=== PATIENT | female | born 1955 | race Caucasian/White ===

== ENCOUNTER 2021-06-04 13:41 | Inpatient (IN) ==
[2021-06-04] MEDS ORDERED: 0.9 % Sodium Chloride 1,000 ML IVC ONE (14:21)
[2021-06-04] MEDS ORDERED: Ketorolac 30 MG/ML VIAL IVP ONE (14:21)
[2021-06-04 14:39] LABS: Basophils % 0.1 %; Eosinophils # 0.1 K/mcL (0.0-0.6); Eosinophils % 1.5 %; Hematocrit 35.1 % (35.3-44.9); Hemoglobin 10.7 g/dL (11.5-15.4); Immature Granulocytes % 0.4 % (0-4); Lymphocytes % 12.5 %; Mean Corpuscular HGB Conc 30.5 g/dL (31.6-35.5); Mean Corpuscular Hemoglobin 28.9 pg (28.0-33.3); Mean Corpuscular Volume 94.9 fL (83.0-100.0); Mean Platelet Volume 10.5 fL (9.4-12.4); Monocytes # 0.5 K/mcL (0.0-1.3); Monocytes % 5.8 %; Neutrophils # 6.4 K/mcL (1.6-8.9); Platelet Count 188 K/mcL (140-400); Red Cell Distribution Width 14.3 % (11.5-14.5); Segmented Neutrophils % 79.7 %
[2021-06-04 14:46] LABS: Bilirubin,Urine Negative (Negative); Blood,Urine Trace-intact (Negative); Clarity,Urine Clear (Clear); Color,Urine Yellow (Yellow); Glucose,Urine (UA) Normal (Normal); Ketones,Urine Negative (Negative); Leukocyte Esterase,Urine Negative (Negative); Nitrite,Urine Negative (Negative); Protein,Urine 30 mg/dL (Neg-Trace); Specific Gravity,Urine 1.015 (1.010-1.025); Urobilinogen,Urine Normal (Normal)
[2021-06-04 14:52] LABS: RBC,Urine 0-3 per hpf (0-3); Squamous Epithelial Cell,Urine Few per hpf (None-Few)
[2021-06-04 14:56] LABS: Potassium 3.5 mEq/L (3.5-5.1)
[2021-06-04] MEDS ORDERED: Azithromycin 500 MG in 0.9 % Sodium Chloride 250 ML IVPB ONE (16:06)
[2021-06-04] MEDS ORDERED: Naloxone 0.4 MG/ML INJ IVP PRN (16:12)
[2021-06-04] MEDS ORDERED: Ondansetron 4 MG/2 ML VIAL IVP PRN (16:12)
[2021-06-04] MEDS ORDERED: Ipratropium/Albuterol Neb 3 ML IH PRN (16:14)
[2021-06-04] MEDS ORDERED: Dextrose 4 GM Chewable Tablets PO PRN ×2 (16:17)
[2021-06-04] MEDS ORDERED: *HR* Dextrose 50 % in Water (Syg) 50 ML SYRINGE IVP PRN (16:17)
[2021-06-04] MEDS ORDERED: D5% in Water 1,000 ML IVC PRN (16:17)
[2021-06-04] MEDS ORDERED: *HR* OxyCODONE Immed Rel 15 MG TABLET PO PRN (16:32)
[2021-06-04] MEDS ORDERED: tiZANidine 4 MG TABLET PO PRN (16:32)
[2021-06-04] MEDS: Insulin LISPRO 300 UNITS/3 ML VIAL SUBQ SCH (17:25)
[2021-06-04] MEDS: Gabapentin 400 MG CAPSULE PO SCH ×2 (17:45→20:22)
[2021-06-04] MEDS: Torsemide 20 MG TABLET PO SCH (17:46)
[2021-06-04] MEDS: rOPINIRole 1 MG TABLET PO SCH (20:22)
[2021-06-04] MEDS: Insulin DETEMIR 100 UNIT/ML X5UNITS SUBQ SCH (20:27)
[2021-06-04] MEDS: Budesonide/Formoterol 160/4.5 1 PUFF INH IH SCH (21:58)
[2021-06-05] MEDS: *HR* Heparin 5,000 UNIT/ML VIAL SQ SCH ×3 (00:01→17:24)
[2021-06-05 06:41] LABS: Calcium 8.3 mg/dL (8.6-10.3); Magnesium 1.9 mg/dL (1.6-2.6); Potassium 3.8 mEq/L (3.5-5.1)
[2021-06-05] MEDS: Gabapentin 400 MG CAPSULE PO SCH ×4 (07:50→21:30)
[2021-06-05] MEDS: Acetaminophen 325 MG TABLET PO PRN ×2 (07:50→17:23)
[2021-06-05] MEDS: Torsemide 20 MG TABLET PO SCH ×2 (07:50→17:24)
[2021-06-05] MEDS: Insulin LISPRO 300 UNITS/3 ML VIAL SUBQ SCH ×3 (07:51→17:58)
[2021-06-05] MEDS: Insulin DETEMIR 100 UNIT/ML X5UNITS SUBQ SCH ×2 (08:00→21:32)
[2021-06-05] MEDS: Budesonide/Formoterol 160/4.5 1 PUFF INH IH SCH ×2 (09:35→22:36)
[2021-06-05] MEDS ORDERED: Azithromycin 500 MG in 0.9 % Sodium Chloride 250 ML IVPB SCH (18:00)
[2021-06-05] MEDS ORDERED: cefTRIAXone 2,000 MG in 0.9 % Sodium Chloride Mini Bag 100 ML IVPB SCH (18:00)
[2021-06-05] MEDS: rOPINIRole 1 MG TABLET PO SCH (21:31)
[2021-06-06] MEDS: *HR* Heparin 5,000 UNIT/ML VIAL SQ SCH (00:05)
[2021-06-06 07:06] VITALS: TEMP 100.6
[2021-06-06] MEDS ORDERED: Furosemide 20 MG/2 ML VIAL IVP ONE (07:28)
[2021-06-06 07:41] LABS: Hematocrit 34.2 % (35.3-44.9); Hemoglobin 10.1 g/dL (11.5-15.4); Mean Corpuscular HGB Conc 29.5 g/dL (31.6-35.5); Mean Corpuscular Volume 98.3 fL (83.0-100.0); Mean Platelet Volume 11.5 fL (9.4-12.4); Platelet Count 188 K/mcL (140-400); Red Blood Count 3.48 M/mcL (3.82-4.97); Red Cell Distribution Width 14.6 % (11.5-14.5); White Blood Count 5.6 K/mcL (4.3-11.1)
[2021-06-06 07:52] LABS: Calcium 8.3 mg/dL (8.6-10.3)
[2021-06-06 08:20] LABS: ABG Base Excess 4 mEq/L (-2 to 3); ABG HCO3 32 mEq/L (21-27); ABG Oxygen Saturation 86 % (95-98); ABG PCO2 69 mmHg (35-45); ABG PH 7.28 pH Units (7.32-7.45); ABG PO2 60 mmHg (85-104); ABG TCO2 34 mEq/L (20-26)
[2021-06-06] MEDS: Budesonide/Formoterol 160/4.5 1 PUFF INH IH SCH (08:56)
[2021-06-06] MEDS: Insulin LISPRO 300 UNITS/3 ML VIAL SUBQ SCH (08:59)
[2021-06-06 09:04] VITALS: RESP 21
[2021-06-06 09:31] VITALS: BP 131/72; PULSE 92; O2SAT 100
[2021-06-06 09:52] LABS: Adenovirus Not Detected (Not Detect); Coronavirus 229E Not Detected (Not Detect); Coronavirus HKU1 Not Detected (Not Detect); Coronavirus NL63 Not Detected (Not Detect); Coronavirus OC43 Not Detected (Not Detect); SARS-CoV-2 Not Detected (Not Detect)
[2021-06-06 09:53] LABS: Bordetella Pertussis Not Detected (Not Detect); Chlamydophila pneumoniae Not Detected (Not Detect); Human Metapneumovirus DETECTED (Not Detect); Human Rhinovirus/Enterovirus Not Detected (Not Detect); Influenza A Subtype 2009 H1 Not Detected (Not Detect); Influenza B Not Detected (Not Detect); Mycoplasma pneumoniae Not Detected (Not Detect); Parainfluenza Virus 1 Not Detected (Not Detect); Parainfluenza Virus 2 Not Detected (Not Detect); Parainfluenza Virus 3 Not Detected (Not Detect); Parainfluenza Virus 4 Not Detected (Not Detect); Respiratory Syncytial Virus Not Detected (Not Detect)
== END 2021-06-06 10:16 | disposition short-term general hospital (02) | DRG 193 ==
LOC: INPPIK 13:41 → EMEROOPIK 13:41 → INPPIK 16:45
PROVIDERS: ADMIT Family Medicine; ATTEND Family Medicine